=== PATIENT | male | born 1960 | race Two or more races ===

== ENCOUNTER → 2016-10-26 | Outpatient (CLI) | payer OTHER ==
--- NOTE | 2016-10-26 19:53 | MR ---
MRI of the Brain (Without Contrast) History: Explain left facial and arm numbness that is slowly resolving since August 05, possible mi ssed stroke. Comparison: Noncontrast head CT 09/10/2016 Technique: T1-weighted images were acquired axially and sagittally from the foramen magnum to the ve rtex. Axial fast inversion recovery, fast T2-weighted, GRE and diffusion-weighted axial images were obtained without contrast. Findings: A few bilateral, scattered isovolumic T2-weighted foci of isovolumic hyperintensity are pre sent predominantly in the subcortical white matter of each hemisphere. None of the lesions are associ ated with hemorrhage on the gradient study or with reduced diffusion to suggest that any or acute. Th ere is diffuse mild atrophy, focally greatest in each posterior parietal lobe. Although this is not a CT angiogram, the left M1 and M2 vessels are possibly narrow, compared to that on the right. There is no hydrocephalus, midline shift, herniation, or epidural/subdural hematomas. No intracranial hemorrhage or masses. Diffusion-weighted sequence demonstrates no acute infarct. Cerebellar tonsils are in normal position. Pituitary gland is normal in size. Normal signal flow-void in the superior sa gittal sinus, basilar artery, and bilateral internal carotid arteries indicating patency. Paranasal s inuses and mastoid air cells are all aerated. There are some benign retention cyst in the lower right maxillary sinus. The mastoid air air cells and both middle ears are normally aerated. No obvious par otid gland abnormality is identified. Impression: 1. Nonspecific white matter foci. Differential diagnosis includes the possibility of seq uelae related to prior migraine headaches, vasculitis, infection such as Lyme disease or potentially microvascular ischemic changes if the patient is diabetic or hypertensive. Considering the possible d ifference in size between the middle cerebral arteries, if there is clinical concern for vasculitis, then consider MRA or CTA for further evaluation.
== END ==
LOC: FIMAGING 18:45
PROVIDERS: ATTEND Psychiatry & Neurology Neurology
DX: R20.2 Paresthesia of skin (principal); R93.0 Abnormal findings on diagnostic imaging of skull and head, not elsewhere classified